=== PATIENT | male | born 1975 | race Caucasian/White ===

== ENCOUNTER 2021-08-03 17:21 | Emergency (ER) | payer BC ==
[2021-08-03] MEDS ORDERED: predniSONE 20 MG Tab PO ONE (18:22)
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
--- NOTE | 2021-08-03 19:10 | CR ---
INDICATION: Elbow pain and tenderness, hurts to move, fingers tingle TECHNIQUE: Elbow radiograph 3 views left COMPARISON: None FINDINGS: Bone: No acute fractures or aggressive bone lesions are identified. Joint: The elbow joint is unremarkable. No significant displacement of the anterior or posterior fat pads noted to suggest an effusion. Soft tissue: Unremarkable. No radiopaque foreign bodies are seen. IMPRESSION: 1. No acute osseous injuries or abnormalities are noted. Dictated by: Wisam Warren MD @ 08/03/2021 19:09:40 (Electronically Signed)
== END 2021-08-03 19:04 | disposition home or self-care (01) ==
LOC: MW.ED 17:21
DX: M77.12 Lateral epicondylitis, left elbow (principal); M70.842 Other soft tissue disorders related to use, overuse and pressure, left hand; Z72.0 Tobacco use
CPT/HCPCS: 73080; 99283; A9270